=== PATIENT | female | born 1960 | race Caucasian/White ===

== ENCOUNTER → 2020-10-07 | Outpatient (CLI) | payer BC ==
--- NOTE | 2020-10-08 08:37 | RAD ---
Three-view right foot radiographs 10/07/2020 CLINICAL HISTORY: Right foot pain. AP, lateral and oblique digital radiographs of the right foot were obtained. No fracture or dislocati on of the right foot is seen. Moderate changes are seen involving the first MTP joint. These consist of joint compartment narrowing, subchondral sclerosis and associated osteophyte formation. Mild to mo derate degenerative changes are seen involving the right ankle. 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 No acute osseous ab normality is seen. Electronically signed by: Collin Caruso MD (10/08/2020 8:34 AM) [id number]
== END ==
LOC: RAD 11:47
PROVIDERS: ATTEND Podiatrist Foot Surgery
DX: M19.071 Primary osteoarthritis, right ankle and foot (principal); M20.21 Hallux rigidus, right foot; M25.774 Osteophyte, right foot
CPT/HCPCS: 73630